=== PATIENT | male | born 1980 | race Caucasian/White ===

== ENCOUNTER 2022-01-31 21:16 | Emergency (ER) | payer BC ==
[2022-01-31] MEDS ORDERED: Sodium Chloride 0.9% 10 ML Syringe FLUSH PRN (21:40)
[2022-01-31] MEDS ORDERED: Ondansetron 4 MG/2 ML SDV IVPUSH ONE (21:40)
[2022-01-31] MEDS ORDERED: HYDROmorphone 1 MG/ML Syringe IVPUSH ONE (21:40)
[2022-01-31] MEDS ORDERED: ceFAZolin 2 GM in Premix Bag 1 BAG IV ONE (21:47)
[2022-01-31] MEDS ORDERED: Sodium Chloride 0.9% 1,000 ML IV ONE (22:01)
[2022-01-31] MEDS ORDERED: ceFAZolin 1 GM in Sodium Chloride 0.9% 50 ML IV ONE (22:12)
== END 2022-01-31 22:47 ==
LOC: JD.ED 21:16
DX: S68.111A Complete traumatic metacarpophalangeal amputation of left index finger, initial encounter (principal); S68.113A Complete traumatic metacarpophalangeal amputation of left middle finger, initial encounter; S68.115A Complete traumatic metacarpophalangeal amputation of left ring finger, initial encounter; W27.0XXA Contact with workbench tool, initial encounter
CPT/HCPCS: 36415; 73130; 80053; 85025; 96365; 96375; 99285; J0690; J1170; J2405; J7030